=== PATIENT | female | born 1990 | race African-American/Black ===

== ENCOUNTER 2016-04-27 13:11 | Emergency (ER) | payer SELFPAY ==
[~2016-04-27] VITALS: Ht 165.1 cm; Wt 55.0 kg
[2016-04-27] MEDS ORDERED: FAMOTIDINE 20MG/2ML VIAL IV STA (17:20)
[2016-04-27] MEDS ORDERED: SODIUM CHLORIDE 0.9% 1,000 ML IV ONE (17:20)
[2016-04-27] MEDS ORDERED: ONDANSETRON HCL 4MG/2ML VIAL IV STA (17:20)
[2016-04-27 17:38] LABS: HEMATOCRIT. 33.6 % (36.0-48.0); HEMOGLOBIN. 10.8 g/dL (12.0-16.0); MEAN CORPUSCULAR HEMOGLOBIN 26.8 pg (28.0-32.0); MEAN CORPUSCULAR HGB CONC 32.2 g/dL (31.0-37.0); MEAN CORPUSCULAR VOLUME 83.3 fL (81.0-99.0); MEAN PLATELET VOLUME 7.5 fl (7.4-10.4); PLATELET 315 x1000/uL (130-400); RED BLOOD CELL COUNT 4.03 mill/uL (4.2-5.4); WHITE BLOOD COUNT 15.7 x1000/uL (4.5-11.0)
[2016-04-27 17:45] LABS: INR 1.1; PROTHROMBIN TIME 11.7 sec
[2016-04-27 17:48] LABS: DIFFERENTIAL COMMENT 1
[2016-04-27 17:51] LABS: ALANINE AMINOTRANSFERASE 18 IU/L (13-61); ALBUMIN 3.5 g/dL (3.4-5.0); ANION GAP 14; CALCIUM 8.2 mg/dL (8.5-10.1); CARBON DIOXIDE 23 mEq/L (21-32); CHLORIDE 107 mEq/L (98-107); INDEX HEMOLYSI 1 (1-3); INDEX ICTERIC 1 (1-4); INDEX LIPEMIC 1 (1-3); LIPASE 87 IU/L (73-393); UREA NITROGEN BLOOD 9 mg/dL (7-21); eGFR > 60 mL/min (>60)
[2016-04-27 18:21] LABS: ATYPICAL LYMPHOCYTES 3; PLATELET ESTIMATE NORMAL
[2016-04-27 18:22] LABS: ANISOCYTOSIS 1+
[2016-04-27 21:00] VITALS: BP 121/76
[2016-04-27] MEDS ORDERED: METOCLOPRAMIDE HCL 10MG/2ML VIAL IV ONE (21:15)
[2016-04-27] MEDS ORDERED: MAGNESIUM/ALUMINUM HYDROXIDE/SIMETHICONE 30ML UDC PO ONE (21:30)
[2016-04-27 21:47] LABS: CLARITY URINE CLEAR (CLEAR); COLOR URINE YELLOW (YELLOW); GLUCOSE URINE NEGATIVE (NEGATIVE); KETONES URINE 1+ (NEGATIVE); LEUKOCYTE ESTERASE URINE NEGATIVE (NEGATIVE); NITRITE URINE NEGATIVE (NEGATIVE); OCCULT BLOOD URINE 3+ (NEGATIVE); PROTEIN URINE NEGATIVE (NEGATIVE); SPECIFIC GRAVITY URINE 1.029 (1.005-1.030); UROBILINOGEN URINE 0.2 E.U./dL (0.2-1.0)
[2016-04-27 22:04] LABS: MUCUS URINE 1+ /lpf (< = 2+); SQUAMOUS EPITHELIAL CELL URINE 1+ /lpf (RARE/1+)
[2016-04-27 22:08] LABS: BACTERIA URINE 2+
== END 2016-04-28 00:39 | disposition home or self-care (01) ==
LOC: ER 13:20
DX: N39.0 Urinary tract infection, site not specified (principal); R11.2 Nausea with vomiting, unspecified; R19.7 Diarrhea, unspecified; R10.13 Epigastric pain; K76.89 Other specified diseases of liver
CPT/HCPCS: 36415; 76705; 80053; 81001; 81025; 83690; 85025; 85610; 96374; 96375; 99284; J2405; J2765; J3490; J7030; Z7610

== ENCOUNTER 2021-04-06 08:47 | Emergency (ER) | payer MEDICAID ==
[~2021-04-06] VITALS: Ht 147.3 cm; Wt 55.0 kg
[2021-04-06] MEDS ORDERED: IBUPROFEN 600MG TABLET PO STA (09:19)
[2021-04-06 11:19] VITALS: BP 127/55
== END 2021-04-06 11:20 | disposition home or self-care (01) ==
LOC: ER 08:47
DX: B34.9 Viral infection, unspecified (principal); R05.9 Cough, unspecified; K21.9 Gastro-esophageal reflux disease without esophagitis
CPT/HCPCS: 71045; 99283

== ENCOUNTER 2022-01-25 09:15 | Emergency (ER) | payer OTHER, MEDICAID ==
[~2022-01-25] VITALS: Ht 152.4 cm; Wt 50.0 kg
[2022-01-25] MEDS ORDERED: ONDANSETRON 4MG ODT PO STA (11:04)
[2022-01-25] MEDS ORDERED: IBUPROFEN 600MG TABLET PO STA (11:04)
[2022-01-25 11:21] VITALS: BP 107/81
[2022-01-25 11:25] LABS: BASOPHILS % 0.5 % (0.0-2.0); EOSINOPHILS % 0.1 % (0.0-5.0); HEMATOCRIT. 41.7 % (36.0-48.0); HEMOGLOBIN. 13.6 g/dL (12.0-16.0); LYMPHOCYTES % 28.6 % (20.0-50.0); MEAN CORPUSCULAR HEMOGLOBIN 28.6 pg (28.0-32.0); MEAN CORPUSCULAR VOLUME 87.6 fL (81.0-99.0); MEAN PLATELET VOLUME 7.2 fl (7.4-10.4); NEUTROPHILS % 61.8 % (40.0-76.0); PLATELET 439 x1000/uL (130-400); RED BLOOD CELL COUNT 4.76 mill/uL (4.2-5.4); RED CELL DISTRIBUTION WIDTH 16.1 % (11.6-14.6)
[2022-01-25 11:32] LABS: CHLORIDE 102 mEq/L (98-107)
[2022-01-25 11:39] LABS: CLARITY URINE CLOUDY (CLEAR); COLOR URINE YELLOW (YELLOW); KETONES URINE 3+ (NEGATIVE); LEUKOCYTE ESTERASE URINE NEGATIVE (NEGATIVE); NITRITE URINE NEGATIVE (NEGATIVE); OCCULT BLOOD URINE 3+ (NEGATIVE); PH URINE 5.5 (4.5-8.0); PROTEIN URINE 2+ (NEGATIVE); SPECIFIC GRAVITY URINE 1.033 (1.005-1.030); UROBILINOGEN URINE 0.2 E.U./dL (0.2-1.0)
[2022-01-25] MEDS ORDERED: FAMO-134 MT (12:39)
[2022-01-25] MEDS ORDERED: TOPUD MT (12:39)
== END 2022-01-25 13:12 | disposition home or self-care (01) ==
LOC: ER 09:15
DX: R10.11 Right upper quadrant pain (principal); R11.2 Nausea with vomiting, unspecified; R19.7 Diarrhea, unspecified; D64.9 Anemia, unspecified; K21.9 Gastro-esophageal reflux disease without esophagitis
CPT/HCPCS: 36415; 76705; 80053; 81003; 81025; 83690; 85025; 99284; Q0162